=== PATIENT | female | born 1995 | race Caucasian/White ===

== ENCOUNTER 2018-09-23 21:18 | Emergency (ER) | payer BC ==
[2018-09-23] MEDS ORDERED: Dexamethasone 10 MG/ML VIAL ONE (21:45)
== END 2018-09-23 22:43 | disposition home or self-care (01) ==
LOC: MADERS 21:18
DX: L50.0 Allergic urticaria (principal); F31.9 Bipolar disorder, unspecified; F17.210 Nicotine dependence, cigarettes, uncomplicated; Z79.899 Other long term (current) drug therapy
CPT/HCPCS: 96372; J1100